=== PATIENT | male | born 1955 | race Caucasian/White ===

== ENCOUNTER 2021-10-02 17:07 | Inpatient (IN) | payer BC, SELFPAY ==
[~2021-10-02] VITALS: Ht 172.7 cm; Wt 104.3 kg
[2021-10-02 17:21] VITALS: BP_SYST 212
--- NOTE | 2021-10-02 17:50 | NUR ---
Patient to ER bed 5 to gown for evaluation. Side rails up. Report given to WILIAM
--- NOTE | 2021-10-02 18:05 | NUR ---
CALM, ALERT, RESP DYSPNEIC, C/O SOB. SAO2 93% ON RA. COMMUNICATES CLEARLY IN FULL COMPLETE SENTECES,
--- NOTE | 2021-10-02 18:26 | NUR ---
AT BEDSIDE, EKG IN PROGRESS, RESP UNLABORED, NO COMPLAINTS
--- NOTE | 2021-10-02 18:50 | NUR ---
DR HUGHES TO TO ASSESS, AT BEDSIDE
[2021-10-02] MEDS ORDERED: methylPREDNISolone SOD SUCC 500 MG/VIAL (Solu-MEDROL) IV ONE (19:00)
[2021-10-02] MEDS ORDERED: MAGNESIUM SULFATE 1 GM/2 ML VIAL IVP ONE (19:00)
[2021-10-02] MEDS ORDERED: IPRATROPIUM/ALBUTEROL SULFATE 3 ML AMPUL.NEB (DUONEB) INH ONE (19:00)
--- NOTE | 2021-10-02 19:13 | NUR ---
Phleb at bedside.
[2021-10-02] MEDS ORDERED: cefTRIAXone 1 GM VIAL IM ONE (19:15)
[2021-10-02] MEDS ORDERED: DOXYCYCLINE HYCLATE 100 MG CAPSULE PO ONE (19:15)
[2021-10-02 19:29] LABS: BASOPHILS % (AUTO) 0.2 % (0.0-2.0); HEMATOCRIT 43.1 % (36-54); HEMOGLOBIN 14.6 g/dL (14.0-18.0); LYMPHOCYTES # (AUTO) 1.5 K/uL (1.0-5.5); MEAN CORPUSCULAR HEMOGLOBIN 31 pg (27-31); MEAN CORPUSCULAR HGB CONC 34 % (32-36); MEAN CORPUSCULAR VOLUME 90 fL (79.0-98.0); MONOCYTES # (AUTO) 0.6 K/uL (0.0-1.0); MONOCYTES % (AUTO) 5.3 % (1.7-9.3); NEUTROPHILS # (AUTO) 9.4 K/uL (1.8-7.7); NEUTROPHILS % (AUTO) 81.5 % (40.0-70.0); PLATELET COUNT (AUTO) 277 K/uL (130-430); RED BLOOD CELL COUNT(AUTO) 4.77 MIL/uL (4.2-6.2); RED CELL DISTRIBUTION WIDTH 13.1 % (9.0-15.0); WHITE BLOOD COUNT (AUTO) 11.6 K/uL (4.8-10.8)
[2021-10-02 19:45] LABS: CREATININE 1.02 mg/dL (0.55-1.30); POTASSIUM 3.8 mmol/L (3.5-5.1)
[2021-10-02 19:56] LABS: ALBUMIN 3.3 g/dL (3.4-4.8); TOTAL BILIRUBIN 0.3 mg/dL (0.0-1.0)
[2021-10-02] MEDS ORDERED: MORPHINE 2 MG/ML INJ. SYRINGE IVP ONE (20:15)
[2021-10-02] MEDS ORDERED: LIDOCAINE PATCH 5% 1 EA TP SCH (20:15)
[2021-10-02] MEDS ORDERED: CYCLOBENZAPRINE HCL 10 MG TABLET (FLEXERIL) PO ONE (20:15)
[2021-10-02] MEDS ORDERED: PRED20TA PO (20:27)
[2021-10-02] MEDS ORDERED: ALBU8.5H8 INH (20:27)
[2021-10-02] MEDS ORDERED: NOR10 PO (20:27)
--- NOTE | 2021-10-02 20:27 | NUR ---
Medication reconciliation completed with information provided by PATIENT. Any prior medication reconciliation on file was reviewed and corrected.
--- NOTE | 2021-10-02 20:28 | NUR ---
PATIENT IS FULL CODE
[2021-10-02] MEDS ORDERED: LIDOCAINE PATCH 5% 1 EA TP ONE (20:47)
--- NOTE | 2021-10-02 20:53 | NUR ---
dr. lo at bedside for reassess
--- NOTE | 2021-10-02 21:42 | NUR ---
Labetolol 10 mg given ivp. bp is 192/116 hr 77bpm resp 20rpm
[2021-10-02] MEDS ORDERED: LABETALOL 100 MG/ 20ML VIAL IVP ONE ×2 (21:45→22:15)
--- NOTE | 2021-10-02 22:16 | NUR ---
labetalol 10mg ivp. bp 196/105 hr 71 bpm rr 19 rpm
--- NOTE | 2021-10-02 22:17 | NUR ---
Patient will be admitted to care of Dr Evans. Admitted to Telemetry unit. Belongings list completed. Complete and up to date summary report printed. SBAR report to be given at bedside with opportunity for questions.
[2021-10-02] MEDS ORDERED: hydrALAZINE HCL 20 MG/ML VIAL IVP ONE (22:45)
--- NOTE | 2021-10-02 23:05 | NUR ---
hydralazine 10 mg ivp given. BP 184/107 hr80 resp 25
[2021-10-02] MEDS: hydrALAZINE HCL 20 MG/ML VIAL IVP ONE (23:28)
[2021-10-02] MEDS ORDERED: MORPHINE 4 MG INJ. 4 MG/ML VIAL IVP ONE (23:45)
[2021-10-02] MEDS ORDERED: ONDANSETRON HCL 4 MG/2 ML VIAL IVP ONE (23:45)
[2021-10-02] MEDS: NACL 0.9% 1,000 ML IV SCH (23:56)
--- NOTE | 2021-10-02 23:59 | NUR ---
patient placed in hospital bed. placed back on telemetry monitor, blood pressure monitoring and pulse oximetry. o2 saturation 90% placed on 2L NC o2 saturation 94%
[2021-10-03] MEDS: hydrALAZINE HCL 20 MG/ML VIAL IVP ONE (00:36)
--- NOTE | 2021-10-03 01:02 | NUR ---
Patient resting quietly. No acute distress noted. Vital signs within normal range.
--- NOTE | 2021-10-03 01:55 | NUR ---
Patient reports right leg cramping. pain 05/09. md notified.
--- NOTE | 2021-10-03 02:10 | NUR ---
medicated per md orders
[2021-10-03] MEDS ORDERED: LORazepam 2 MG/ML VIAL IVP ONE (02:15)
[2021-10-03] MEDS ORDERED: MORPHINE 2 MG/ML INJ. SYRINGE IVP ONE (02:15)
--- NOTE | 2021-10-03 02:35 | NUR ---
Patient resting quietly. No acute distress noted. Vital signs within normal range.
--- NOTE | 2021-10-03 03:39 | NUR ---
ASSUMED ALL CARE OF PATIENT. REPORT RECIEVED FROM MARIE. PT RESTING AND SLEEPING IN BED. VSS.
--- NOTE | 2021-10-03 04:38 | NUR ---
Patient resting quietly. No acute distress noted. Vital signs within normal range. IVF infusing with no s/s of infiltration at this time. Will cont to monitor
--- NOTE | 2021-10-03 05:30 | NUR ---
Patient resting quietly. No acute distress noted. Vital signs within normal range.
--- NOTE | 2021-10-03 06:43 | NUR ---
DR. GRIMES AT BEDSIDE TO EVALUATION PATIENT.
--- NOTE | 2021-10-03 07:07 | NUR ---
REPORT GIVEN TO ASHLEE SEO TO ASSUME ALL CARE OF PT. PT RESTING, VSS.
[2021-10-03 07:55] LABS: BASOPHILS % (AUTO) 0.1 % (0.0-2.0); HEMATOCRIT 41.9 % (36-54); HEMOGLOBIN 13.9 g/dL (14.0-18.0); LYMPHOCYTES # (AUTO) 1.8 K/uL (1.0-5.5); LYMPHOCYTES % (AUTO) 15.4 % (20.5-51.5); MEAN CORPUSCULAR HEMOGLOBIN 30 pg (27-31); MEAN CORPUSCULAR HGB CONC 33 % (32-36); MEAN CORPUSCULAR VOLUME 91 fL (79.0-98.0); MONOCYTES # (AUTO) 0.8 K/uL (0.0-1.0); MONOCYTES % (AUTO) 6.4 % (1.7-9.3); NEUTROPHILS # (AUTO) 9.3 K/uL (1.8-7.7); NEUTROPHILS % (AUTO) 78.1 % (40.0-70.0); PLATELET COUNT (AUTO) 273 K/uL (130-430); RED BLOOD CELL COUNT(AUTO) 4.61 MIL/uL (4.2-6.2); RED CELL DISTRIBUTION WIDTH 13.5 % (9.0-15.0); WHITE BLOOD COUNT (AUTO) 11.9 K/uL (4.8-10.8)
[2021-10-03 07:59] LABS: CALCIUM 8.6 mg/dL (8.4-11.0); CREATININE 0.91 mg/dL (0.55-1.30); POTASSIUM 4.2 mmol/L (3.5-5.1)
--- NOTE | 2021-10-03 08:00 | NUR ---
PT UP TO BATHROOM, STEAY GAIT. WATER OFFERED, WAITING FOR BREAKFAST TRAY.
[2021-10-03 08:05] LABS: ALBUMIN 2.9 g/dL (3.4-4.8); TOTAL BILIRUBIN 0.3 mg/dL (0.0-1.0)
[2021-10-03] MEDS: BUDESONIDE 0.5 MG/2 ML AMPUL.NEB INH SCH ×2 (09:00→19:34)
--- NOTE | 2021-10-03 09:12 | NUR ---
PT RECEIVED BREAKFAST, TOLERATED WELL, ATE 100%. VSS.
--- NOTE | 2021-10-03 10:42 | NUR ---
NO ACUTE CHNAGES IN CONDITION, PT SITTING UP IN BED, IN NAD. RESP EVEN AND UNLABORED.
[2021-10-03 11:05] VITALS: BP_SYST 157
--- NOTE | 2021-10-03 11:10 | NUR ---
Patient will be admitted to care of Admitted to unit. Will go to room . Belongings list completed. Complete and up to date summary report printed. SBAR report to be given at bedside with opportunity for questions.
--- NOTE | 2021-10-03 11:20 | NUR ---
ADMISSION ASSESSMENT PT CAME FROM ER DX PNA,ACCELERATED HTN. DENIES ANY PAIN OR SOB AT THIS TIME. RES EVEN AND UNLABORED ON O2 4 L SATURATION 97%. SAFETY AND FALL PRECAUTIONS IN PLACE. COVID RAPID TEST NEG PER ER NURSE PT IS NOT PUI. NEEDS ATTENDED. BED LOCKED AND IN LOW POSITIONED WILL CONITNUE TO MONITOR.
[2021-10-03] MEDS: IPRATROPIUM/ALBUTEROL SULFATE 3 ML AMPUL.NEB (DUONEB) INH SCH ×4 (11:26→22:38)
[2021-10-03] MEDS: methylPREDNISolone SOD SUCC 40 MG/ML VIAL IVP SCH ×2 (12:01→20:38)
[2021-10-03] MEDS: METOPROLOL TARTRATE 25 MG TABLET PO SCH ×2 (12:02→20:55)
[2021-10-03] MEDS: cefTRIAXone 1 GM IVPB PREMIX 50 ML IV SCH (12:02)
[2021-10-03] MEDS: NACL 0.9% 1,000 ML IV SCH ×2 (12:23→20:56)
--- NOTE | 2021-10-03 12:53 | NUR ---
CONSULTATION PAGED/CALLED Reason for Consultation: PNA Person Who was Notified: TANISHA Consulting Physician: VALARIE Penal Officer Specialty: ID Ordering Physician: ЕЛЕНА
[2021-10-03] MEDS: AZITHROMYCIN 500 MG in NS 250 ML IV SCH (13:01)
--- NOTE | 2021-10-03 13:30 | NUR ---
rounds pt stable not in acute distress. dr varela gave order to do covid pcr. pcr collected sent to lab. poc discussed with pt. contact droplet isolation maintained. lindsay called notified about pt/s status. will conitnue to monitor
[2021-10-03 16:00] VITALS: BP_SYST 175
--- NOTE | 2021-10-03 17:30 | NUR ---
rounds pt stable not in acute res distress. walked to bathroom with steady gait. c/o of rt leg muscle pain . paged dr varela for pain medication.
--- NOTE | 2021-10-03 18:48 | NUR ---
closing notes pt stable. ate dinner. not in acute distress. res even and unlabored waiting for dr varela to call back for pain med. needs attended throughout shift . safteyy/fall precautions in place. will give report to night nurse
--- NOTE | 2021-10-03 19:30 | NUR ---
CHANGE OF SHIFT; endorsed by day shift, admitted today from ER, been on hold for 2 days. Dx PNA/Accelerated HTN. on isolation for PUI Covid no distress. call light within reach.
--- NOTE | 2021-10-03 19:40 | NUR ---
NOTES: called Dr. Tate and informed him bout pt. complain of pain, prn medication ordered.
[2021-10-03] MEDS ORDERED: MORPHINE 2 MG/ML INJ. SYRINGE IVP PRN (19:45)
[2021-10-03] MEDS ORDERED: CYCLOBENZAPRINE HCL 10 MG TABLET (FLEXERIL) PO ONE (19:45)
[2021-10-03 21:00] VITALS: BP_SYST 183
[2021-10-03] MEDS: MORPHINE 2 MG/ML INJ. SYRINGE IVP PRN (21:00)
--- NOTE | 2021-10-03 21:00 | NUR ---
NOTES: pt. awake on high fowlers position. medicated with IV Morphine for c/o rt. leg pain. IV pump off, battery empty , no sheep boner . IV site checked, flushed and it was kinked. BP high , due medication given. on equipment monitor phototypesetting and shows sinus rhythm. ambulated to the restroom. kept O2 @ 2 liters per nasal cannula. noted occasional bouts of non productive cough. call light at bedside.
[2021-10-04] VITALS (7 sets, daily range): BP systolic 169–187
[2021-10-04] MEDS: NACL 0.9% 1,000 ML IV SCH (03:16)
[2021-10-04] MEDS: IPRATROPIUM/ALBUTEROL SULFATE 3 ML AMPUL.NEB (DUONEB) INH SCH ×5 (03:19→19:47)
--- NOTE | 2021-10-04 03:30 | NUR ---
NOTES: pt. checked, noted IV came off and leaked on the bed. complete linen changed. pt. ambulated to the restroom. due breathing treatment per RT. IV restarted on l;eft hand with gauge #22 and resume IVF> pt. went back to bed, contionue O2@ 3 liters per nasal cannula. condition observed.
--- NOTE | 2021-10-04 06:50 | NUR ---
CLOSING NOTES; pt. asleep. IVF continuous. no distress. kept O2 @ 3 liters per nasal cannula, still with occ. cough. HOB elevated. on isolation for PUI Covid. for further care and assistance. call light within reach.
[2021-10-04] MEDS: BUDESONIDE 0.5 MG/2 ML AMPUL.NEB INH SCH ×2 (07:52→19:47)
--- NOTE | 2021-10-04 08:20 | NUR ---
0800: Rec'd pt sitting up at bedside in chiar, resps easy. Pt denies pain. IV noted to L hand- patent, infusing IVF. CSMW satisfactory. No headache, dizziness, chest pain, Numbness, tingling, edema. Lungs diminished bilat. audible wheezes heard. SOB at rest and exertion noted. cough noted- productive- green sputum. 3L [employer]IVES 94% + breathing treatments. BS x4. good appetite. no nausea or vomiting. voiding well. LBM Nov 02/17. No skin concerns. IND with ADL's and mobility. VSS. Med accepting. Will continue to monitor.
[2021-10-04] MEDS: METOPROLOL TARTRATE 25 MG TABLET PO SCH ×2 (08:43→20:44)
[2021-10-04] MEDS: methylPREDNISolone SOD SUCC 40 MG/ML VIAL IVP SCH ×2 (08:43→20:44)
[2021-10-04] MEDS: cefTRIAXone 1 GM IVPB PREMIX 50 ML IV SCH (08:44)
[2021-10-04] MEDS: AZITHROMYCIN 500 MG in NS 250 ML IV SCH (10:09)
--- NOTE | 2021-10-04 13:55 | NUR ---
1355: M[employer] Inspector spoke with Dr. Evans in regards to BP and IVF- ordered to DC IVF.
--- NOTE | 2021-10-04 17:33 | NUR ---
1733: Pt sitting at bedside eating dinner. No voiced concerns. Call saab in reach. Will continue to monitor.
--- NOTE | 2021-10-04 19:15 | NUR ---
change of shift.pt.presents isolation status;droplet:covid19+status.pt.presents o2 therapy via nasal cannulea:rate;5l/min. pt.presents iv access location:lt.arm intact iv lock.pt.had stated pain location rt.knee/leg to f/u review emar med-list. pt.capable to reposition self/ambulate.call light/telephone w/in access of the pt.
--- NOTE | 2021-10-04 20:00 | NUR ---
pt.assessed.v/s assessed values note b/p status elevated.to f/u review emar med-list.i apprised the pt.that the pain medication morphine;2mg due@.i apprised the pt.that snacks/beverages are available w/in the shift.no requests posited@this hour.o2-sat%=96%.general status stable.respiratory status stable.call light/telephone w/in access of the pt.
[2021-10-04] MEDS: hydrALAZINE HCL 25 MG TABLET PO SCH (20:45)
[2021-10-04] MEDS: MORPHINE 2 MG/ML INJ. SYRINGE IVP PRN (20:48)
--- NOTE | 2021-10-04 21:00 | NUR ---
2100p medications administered.b/p medication lopressor per b/p status/morphine;2mg ivp.to assess the efficacy of the pain medication per pain mgx protocol. pt.had requested ice chips provided.call light/telephone w/in access of the pt.
--- NOTE | 2021-10-04 22:00 | NUR ---
pt.assessed.pt.presents quiescent affect calm,resting.no requests posited@this hour.o2-sat%=96%.pt.capable to reposition self.call light/telephone w/in access of the pt.
[2021-10-05] VITALS (7 sets, daily range): BP systolic 164–192
--- NOTE | 2021-10-05 | NUR ---
pt.assessed..v/s assessed note b/p status elevated;to f/u w md.pt.stated pain present to f/u .iv access intact;iv lock. no requests posited@this hour.o2-sat%=96%.pt.capable to reposition self.call light/telephone w/in access of the pt.
[2021-10-05] MEDS: IPRATROPIUM/ALBUTEROL SULFATE 3 ML AMPUL.NEB (DUONEB) INH SCH ×7 (00:04→22:39)
[2021-10-05] MEDS ORDERED: amLODIPine BESYLATE 10 MG TABLET PO ONE (00:30)
--- NOTE | 2021-10-05 00:30 | NUR ---
paged. apprised pt's elevated b/p. ordered norvasc:10mg po x1 and daily,clonidine:0.1mg po; q-6hrs;prn;sbp>160.i have administered norvasc,clonidine,morphine;2mg ivp.to assess the efficacy of the pain medication per pain mgx protocol and the b/p per protocol.no requests posited@this hour.cardio monitor replaced.
[2021-10-05] MEDS: cloNIDine HCL 0.1 MG TABLET PO PRN ×3 (00:31→18:11)
[2021-10-05] MEDS: MORPHINE 2 MG/ML INJ. SYRINGE IVP PRN (00:34)
--- NOTE | 2021-10-05 02:00 | NUR ---
pt.assessed.pt.presents quiescent affect calm,somnolent.02-sat%=96%.per flacc pain mgx pt.absent facial grimaces/body posturing.iv access intact.pt.capable reposition self.call light/telephone w/in access of the pt.
--- NOTE | 2021-10-05 04:00 | NUR ---
pt.assessed.pt.presents quiescent affect calm,somnolent.per flacc pain mgx pt.absent facial grimaces/ body posturing. pt.capable to reposition self.iv access intact.o2-sat%=96%.call light/telephone w/in access of the pt.
[2021-10-05] MEDS: hydrALAZINE HCL 25 MG TABLET PO SCH ×3 (05:33→21:22)
--- NOTE | 2021-10-05 06:10 | NUR ---
pt.assessed.v/s assessed note b/p values remained elevated but status decreasing.no c/o pain,nausea.[id number] dose,clonidine/prn administered.pt.requested ice chips provided.pt.capable to reposition self.o2-sat=96%.call light/telephone w/in access of the pt.
[2021-10-05] MEDS: BUDESONIDE 0.5 MG/2 ML AMPUL.NEB INH SCH ×2 (07:00→19:17)
[2021-10-05] MEDS: METOPROLOL TARTRATE 25 MG TABLET PO SCH ×2 (07:50→21:23)
[2021-10-05] MEDS: methylPREDNISolone SOD SUCC 40 MG/ML VIAL IVP SCH ×2 (07:51→21:23)
[2021-10-05] MEDS: cefTRIAXone 1 GM IVPB PREMIX 50 ML IV SCH (07:51)
[2021-10-05] MEDS: amLODIPine BESYLATE 10 MG TABLET PO SCH (07:51)
--- NOTE | 2021-10-05 08:30 | NUR ---
0830: Rec'd pt sitting up at bedside in chair, resps easy. Pt c/o pain to R leg- awaiting doppler results. IV noted to L hand- patent, IV ABX infusing per JAN. CSMW satisfactory. No headache, dizziness, chest pain, Numbness, tingling, edema. Lungs diminished bilat. audible wheezes heard. SOB on exertion noted. cough noted- productive- green sputum. RA 94% + breathing treatments. BS x4. good appetite. no nausea or vomiting. voiding well. LBM Nov 03/20. No skin concerns. IND with ADL's and mobility. VSS. Med accepting. Will continue to monitor.
[2021-10-05] MEDS: AZITHROMYCIN 500 MG in NS 250 ML IV SCH (09:40)
--- NOTE | 2021-10-05 17:54 | NUR ---
1754: Pt sitting up at bedside. No voiced concerns. VSS- doing well after turning off O2 this am. Bed in low position. Call saab in reach. Will continue to monitor.
--- NOTE | 2021-10-05 18:11 | NUR ---
BP elevated 192/94- clonodine administered as per eMAR. will continue to monitor.
--- NOTE | 2021-10-05 22:00 | NUR ---
ROUNDING NOTES Patient resting in bed - no s/s pain or distress noted. Respirations even and unlabored - head of bed elevated. IV site patent - no s/s redness, infection, or infiltration. Bed locked and in lowest position. Call light within reach.
[2021-10-06] VITALS (7 sets, daily range): BP systolic 154–174
[2021-10-06] MEDS: cloNIDine HCL 0.1 MG TABLET PO PRN ×3 (01:08→16:10)
[2021-10-06] MEDS: IPRATROPIUM/ALBUTEROL SULFATE 3 ML AMPUL.NEB (DUONEB) INH SCH ×5 (03:00→23:18)
[2021-10-06] MEDS: hydrALAZINE HCL 25 MG TABLET PO SCH ×3 (06:28→21:36)
[2021-10-06 06:56] LABS: BASOPHILS % (AUTO) 0.1 % (0.0-2.0); HEMATOCRIT 40.4 % (36-54); HEMOGLOBIN 13.7 g/dL (14.0-18.0); LYMPHOCYTES # (AUTO) 1.1 K/uL (1.0-5.5); LYMPHOCYTES % (AUTO) 8.7 % (20.5-51.5); MEAN CORPUSCULAR HEMOGLOBIN 31 pg (27-31); MEAN CORPUSCULAR HGB CONC 34 % (32-36); MEAN CORPUSCULAR VOLUME 91 fL (79.0-98.0); MONOCYTES # (AUTO) 0.4 K/uL (0.0-1.0); MONOCYTES % (AUTO) 3.2 % (1.7-9.3); NEUTROPHILS # (AUTO) 10.9 K/uL (1.8-7.7); PLATELET COUNT (AUTO) 209 K/uL (130-430); RED BLOOD CELL COUNT(AUTO) 4.46 MIL/uL (4.2-6.2); RED CELL DISTRIBUTION WIDTH 12.8 % (9.0-15.0); WHITE BLOOD COUNT (AUTO) 12.4 K/uL (4.8-10.8)
[2021-10-06] MEDS: BUDESONIDE 0.5 MG/2 ML AMPUL.NEB INH SCH ×2 (07:00→19:49)
[2021-10-06] MEDS: amLODIPine BESYLATE 10 MG TABLET PO SCH (08:08)
[2021-10-06] MEDS: methylPREDNISolone SOD SUCC 40 MG/ML VIAL IVP SCH ×2 (08:09→21:37)
[2021-10-06] MEDS: METOPROLOL TARTRATE 25 MG TABLET PO SCH ×2 (08:09→21:37)
[2021-10-06] MEDS: cefTRIAXone 1 GM IVPB PREMIX 50 ML IV SCH (08:09)
--- NOTE | 2021-10-06 08:15 | NUR ---
0815: Rec'd pt sitting up at bedside in chair, resps easy. Pt denies pain. IV noted to L hand- patent, IV ABX infusing per JAN. CSMW satisfactory. No headache, dizziness, chest pain, Numbness, tingling, edema. Lungs diminished bilat. no SOB reported. cough noted- productive- green sputum. RA 98% + breathing treatments. BS x4. good appetite. no nausea or vomiting. voiding well. LBM Nov 05/20. No skin concerns. IND with ADL's and mobility. VSS. Med accepting. Will continue to monitor.
[2021-10-06 08:23] LABS: ALBUMIN 2.8 g/dL (3.4-4.8); CALCIUM 8.7 mg/dL (8.4-11.0); CREATININE 0.91 mg/dL (0.55-1.30); POTASSIUM 4.1 mmol/L (3.5-5.1); TOTAL BILIRUBIN 0.4 mg/dL (0.0-1.0)
[2021-10-06] MEDS: AZITHROMYCIN 500 MG in NS 250 ML IV SCH (08:53)
--- NOTE | 2021-10-06 11:05 | NUR ---
INFORMED ASHLEE GARCIA THAT PT IS OFF MONITOR, LEAD OFF.
--- NOTE | 2021-10-06 12:33 | NUR ---
Paging ID doc- PCR negative- promotion writer looking for direction regarding precautions.
--- NOTE | 2021-10-06 13:00 | NUR ---
1300: Spoke with ID doc- ok to take off precautions
--- NOTE | 2021-10-06 16:05 | NUR ---
Pt's family visiting at bedside. VS- BP elevated- prn clonidine administered per eMAR. Will continue to monitor.
--- NOTE | 2021-10-06 17:36 | NUR ---
Pt sitting up at bedside with family in the room. No voiced concerns. Call saab in reach. Will continue to monitor.
--- NOTE | 2021-10-06 20:00 | NUR ---
INITIAL NOTES; PT IS AWAKE , NOT IN ANY ACUTE DISTRESS; VITALS ARE STABLE ;IV TO THE LEFT HAND 22G , IV FLUSHED WELL , NO S/S OF ANY INFILTRATION NOTICED ; ASSESSMENT COMPLETED ; BED IN LOW AND LOCK POSITION , CALL [place] IN REACH ; ENCOURAGED PT TO CALL FOR ASSIST . WILL CONTINUE TO MONITOR PT .
[2021-10-07 01:10] VITALS: BP_SYST 170
[2021-10-07] MEDS: cloNIDine HCL 0.1 MG TABLET PO PRN (01:12)
--- NOTE | 2021-10-07 01:23 | NUR ---
RN NOTES: BP IS HIGH , MEDICATED PER ORDER, WILL MONITOR PT .
[2021-10-07] MEDS: IPRATROPIUM/ALBUTEROL SULFATE 3 ML AMPUL.NEB (DUONEB) INH SCH ×4 (03:00→16:22)
--- NOTE | 2021-10-07 04:56 | NUR ---
RN NOTES: PT IS RESTING COMFORTABLY , NOT IN ANY ACUTE DISTRESS; RESPIRATION IS EVEN AND NON LABORED ; WILL CONTINUE TO MONITOR PT .
[2021-10-07] MEDS: hydrALAZINE HCL 25 MG TABLET PO SCH ×2 (05:44→13:55)
[2021-10-07 06:36] LABS: BASOPHILS % (AUTO) 0.1 % (0.0-2.0); HEMATOCRIT 40.3 % (36-54); HEMOGLOBIN 13.5 g/dL (14.0-18.0); LYMPHOCYTES # (AUTO) 0.8 K/uL (1.0-5.5); LYMPHOCYTES % (AUTO) 7.5 % (20.5-51.5); MEAN CORPUSCULAR HEMOGLOBIN 30 pg (27-31); MEAN CORPUSCULAR HGB CONC 33 % (32-36); MEAN CORPUSCULAR VOLUME 91 fL (79.0-98.0); MONOCYTES # (AUTO) 0.4 K/uL (0.0-1.0); MONOCYTES % (AUTO) 3.5 % (1.7-9.3); NEUTROPHILS # (AUTO) 9.8 K/uL (1.8-7.7); NEUTROPHILS % (AUTO) 88.9 % (40.0-70.0); PLATELET COUNT (AUTO) 196 K/uL (130-430); RED BLOOD CELL COUNT(AUTO) 4.46 MIL/uL (4.2-6.2)
--- NOTE | 2021-10-07 06:40 | NUR ---
CLOSING NOTES: PT IS AWAKE , DR GRIMES MADE ROUNDS, ALL NEEDS ATTENDED , BP IS STABLE , NOT IN ANY ACUTE DISTRESS; WILL CONTINUE TO MONITOR AND WILL ENDORSE TO NEXT SHIFT NURSE .
[2021-10-07 06:45] LABS: ALBUMIN 2.6 g/dL (3.4-4.8); CALCIUM 7.6 mg/dL (8.4-11.0); CREATININE 1.03 mg/dL (0.55-1.30); POTASSIUM 3.9 mmol/L (3.5-5.1); TOTAL BILIRUBIN 0.5 mg/dL (0.0-1.0)
[2021-10-07] MEDS: BUDESONIDE 0.5 MG/2 ML AMPUL.NEB INH SCH (07:33)
[2021-10-07] MEDS: amLODIPine BESYLATE 10 MG TABLET PO SCH (09:45)
[2021-10-07] MEDS: METOPROLOL TARTRATE 25 MG TABLET PO SCH (09:45)
[2021-10-07] MEDS: methylPREDNISolone SOD SUCC 40 MG/ML VIAL IVP SCH (09:45)
[2021-10-07] MEDS: cefTRIAXone 1 GM IVPB PREMIX 50 ML IV SCH (09:45)
[2021-10-07] MEDS: AZITHROMYCIN 500 MG in NS 250 ML IV SCH (10:45)
[2021-10-07] MEDS ORDERED: lisinopriL 20 MG TABLET PO ONE (10:45)
[2021-10-07 11:28] VITALS: BP_SYST 160
--- NOTE | 2021-10-07 15:32 | NUR ---
PAGED PAGED DIALLO PICHARDO AT [phone] SPOKE WITH THALIA.
[2021-10-07 16:05] VITALS: BP_SYST 152
[2021-10-07 16:40] VITALS: BP_SYST 156
[2021-10-07] MEDS ORDERED: LISI20TA30 PO ×2 (16:59)
[2021-10-07] MEDS ORDERED: LEVO500T89 PO (17:01)
[2021-10-07] MEDS ORDERED: PRED10TA PO (17:03)
[2021-10-07] MEDS ORDERED: BUDE6HFA INH (17:05)
[2021-10-07] MEDS ORDERED: METO25TA6 PO (17:08)
--- NOTE | 2021-10-07 17:50 | NUR ---
1730: DC INSTRUCTION GIVEN AND EXPLAINED TO THE PATIENT AND AND BOTH VERBALIZED UNDERSTANDING. PRESCRIPTION FROM MD GIVEN TO PATIENT WELL. ER PRECAUTION DISCUSSED. IV REMOVED FROM THE LH, IV CATH INTACT AN PATENT WHEN REMOVED. NO BLEEDING NOTED. COVER SITE WITH GAUZE AND SECURE WITH TAPE. PATIENT STABLE THROUGHOUT THE SHIFT. NO C/O PAIN, DISTRESS, OR SOB. ROOM AIR ALL DAY WITH 02 SAT 96%. 1750: PATIENT LEFT THE UNIT IN A STABLE CONDITION. NO ADDITIONAL DISTRESS NOTED. WHEELED OUT BY [employer]ICAL GOODS WORKER AND ACCOMPANIED BY . ALL PERSONAL BELONGINGS GIVEN TO PATIENT AND DENIES MISSING ITEMS.
[2021-10-07 21:06] LABS: MYCOPLASMA PNEUMONIAE IgM <770 U/mL (0-769)
[2021-10-08] MEDS ORDERED: lisinopriL 20 MG TABLET PO SCH (09:00)
[2021-10-16 14:14] LABS: LEGIONELLA PNEUMOPHILIA AB 1.64 OD ratio (0.00-0.90)
== END 2021-10-07 17:55 | disposition home or self-care (01) | DRG 193 ==
LOC: SED 17:07 → STU 22:10
PROVIDERS: ADMIT Internal Medicine Hospice and Palliative Medicine; ATTEND Internal Medicine Hospice and Palliative Medicine
DX: J18.9 Pneumonia, unspecified organism (principal); J96.01 Acute respiratory failure with hypoxia; I50.33 Acute on chronic diastolic (congestive) heart failure; J45.901 Unspecified asthma with (acute) exacerbation; I16.1 Hypertensive emergency; I11.0 Hypertensive heart disease with heart failure; E66.9 Obesity, unspecified; M79.604 Pain in right leg; Z96.659 Presence of unspecified artificial knee joint; Z20.822 Contact with and (suspected) exposure to COVID-19; T46.5X6A Underdosing of other antihypertensive drugs, initial encounter; Y92.89 Other specified places as the place of occurrence of the external cause; Z68.35 Body mass index [BMI] 35.0-35.9, adult; Z79.899 Other long term (current) drug therapy
CPT/HCPCS: 36415; 71045; 72148; 80053; 83605; 84484; 85025; 85379; 86140; 86713; 86738; 87040-TC; 87449; 93005; 93306; 93970; 94640; 94760; 96372; 96374; 96375; 96376; 99285; G0378; J0360; J0456; J0696; J1030; J2060; J2270; J2405; J3475; J3490; J7050; J7626; U0003